=== PATIENT | male | born 1965 | race Caucasian/White ===

== ENCOUNTER 2016-12-16 13:08 | Emergency (ER) ==
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
--- NOTE | 2016-12-16 15:24 | Diag Imaging Result Document ---
PROCEDURE NAME: CHEST-2 VIEWS - 12/16/2016 PA AND LATERAL RADIOGRAPH OF THE CHEST: COMPARISON: None available. FINDINGS: The lungs are grossly clear. There is no discrete pleural fluid collection or evidence of pneumothorax. The cardiomediastinal silhouette and upper airway are grossly unremarkable. IMPRESSION: No evidence of acute chest pathology.
--- NOTE | 2016-12-16 15:27 | Diag Imaging Result Document ---
PROCEDURE NAME: KUB ABDOMEN - 12/16/2016 SINGLE SUPINE RADIOGRAPH OF THE ABDOMEN AND PELVIS: COMPARISON: None available. FINDINGS: There are unremarkable bowel gas and stool patterns. There is no definite obstructive pattern. There is no evidence of large-volume free abdominal gas as imaged. There are several dense foci along the colon that likely represent retained barium in diverticula from a previous oral contrast enhanced study. IMPRESSION: No evidence of acute pathology by plain radiograph.
[2016-12-16 16:11] VITALS: BP 118/68
== END 2016-12-16 16:14 | disposition home or self-care (01) ==
LOC: ED 13:08
DX: S50.312A Abrasion of left elbow, initial encounter (principal); S60.413A Abrasion of left middle finger, initial encounter; V69.40XA Driver of heavy transport vehicle injured in collision with unspecified motor vehicles in traffic accident, initial encounter; Z79.899 Other long term (current) drug therapy
CPT/HCPCS: 71020; 74000